=== PATIENT | female | born 1985 | race Caucasian/White ===

== ENCOUNTER → 2016-11-21 | Outpatient (CLI) | payer OTHER | END | disposition home or self-care (01) | LOC: C.PAPS 09:15 | PROVIDERS: ATTEND Obstetrics & Gynecology | DX: Z01.411 Encounter for gynecological examination (general) (routine) with abnormal findings (principal); R87.612 Low grade squamous intraepithelial lesion on cytologic smear of cervix (LGSIL) ==

== ENCOUNTER → 2016-12-19 | Outpatient (CLI) | payer OTHER ==
[~2016-12-19] MED LIST: LEVOIUD PV
== END | disposition home or self-care (01) ==
LOC: C.PATHSPEC 17:26
PROVIDERS: ATTEND Obstetrics & Gynecology
DX: R87.810 Cervical high risk human papillomavirus (HPV) DNA test positive (principal); R87.612 Low grade squamous intraepithelial lesion on cytologic smear of cervix (LGSIL)

== ENCOUNTER → 2017-01-10 | Day surgery (SDC) | payer OTHER ==
[2016-12-27 16:18] VITALS: Ht 154.9 cm; Wt 53.2 kg
[~2017-01-10] VITALS: Ht 154.9 cm; Wt 53.2 kg
[~2017-01-10] MED LIST changes: +ACETIC ACID 4% (WHITE VINEGAR) 30ML ONE; +ATROPINE SULFATE 0.1 MG/ML 5ML SYR IV PRN; +DEXAMETHASONE SOD INJ 4 MG/ML VIAL ONE; +EpHEDrine SULFATE INJ 50 MG/ML AMP IV PRN; +FENTANYL CITRATE INJ 50 MCG/1 ML 2 ML VIAL IV PRN; +FENTANYL CITRATE INJ 50 MCG/1 ML 2 ML VIAL ONE; +FERRIC SUBSULFATE 8 GM VIAL ONE; +IBUPROFEN 200 MG TAB ONE; +IBUPROFEN 600 MG TAB PO PRN; +IODINE SOLN STRONG 14 ML ONE; +KETOROLAC TROMETHAMINE 30 MG/ML VIAL IV. PRN; +KETOROLAC TROMETHAMINE 30 MG/ML VIAL ONE; +LACTATED RINGER'S 1000ML 1,000 ML IV SCH; +LIDO 2%/EPINEPHRINE 1:100000 20 ML VIAL INFIL ONE; +LIDOCAINE HCL 2% 2 ML VIAL (20MG/ML) ONE; +MIDAZOLAM HCL 1 MG/ML 2ML VIAL ONE; +ONDANSETRON INJ 2 MG/ML 2 ML VIAL IV PRN; +ONDANSETRON INJ 2 MG/ML 2 ML VIAL ONE; +OXYCODONE/ACETAMINOPHEN 5-325 TAB PO PRN; +PROPOFOL IV EMULSION 10 MG/ML 20 ML VIAL IV ONE; +SODIUM CHLORIDE 0.9% 1000ML 1,000 ML IV SCH
--- NOTE | 2017-01-10 07:13 | History & Physical Bridge - [place] ---
H&P Re-Evaluation Bridge Note: I have examined the patient, reviewed the History & Physical and in the interval since the performance of the History & Physical I have noted the following changes of clinical significance: No changes noted
--- NOTE | 2017-01-10 08:34 | [facility] Operative Report ---
Operative Report Operative Date Jan 10, 2017. Pre-Operative Diagnosis Moderate dysplasia, encounter for IUD removal and reinsertion Post-Operative Diagnosis Same Procedure(s) Performed #1 LEEP procedure #2 ECC above LEEP #3 removal of IUD #4 insertion of IUD Surgeon Blaze Timber Inspector Surgeon(s) none Estimated Blood Loss 1 Findings Nonstaining area of the cervix after Lugol's includes tongues of tissue anteriorly at approximately 11:00 and posteriorly at approximately 7:00. Uterus sounds to 6 cm. Fluids 400 Specimens RNA probe, LEEP anterior lip, LEEP posterior lip, ECC above LEEP Drains none Anesthesia Gen. Complication(s) None Disposition Recovery Room / PACU Indications 31-year-old with a history of abnormal Pap smear to include low-grade GAURAV possible high-grade GAURAV. Colposcopy performed with findings of moderate dysplasia. Areas of acetowhite change were very broad and recommended that the patient had LEEP procedure in the operating room. He is also due for removal and reinsertion of her IUD and we decided to do that simultaneously. Description of Procedure Patient take to the operating room and identified. After adequate general anesthesia was obtained she was placed in the dorsal lithotomy position. An RNA probe was obtained. A coated speculum was placed and the cervix was visualized. The IUD string was noted and the IUD was removed. The cervix was cleansed with acetic acid solution followed by Lugol's. The area of planned LEEP was noted. The cervix was circumferentially injected with 10 cc of 2% lidocaine with epinephrine. The LEEP procedure took place with an anterior lip pass, a posterior lip passed, and an ECC above the LEEP bed. The LEEP bed was cauterized with ball cautery. An Allis clamp was placed on the anterior lip. Uterus is sounded to 6 cm. A new Mirena device was readied and placed at the fundus in the usual fashion. The strings were trimmed to 2 cm. Monsel's was applied. Hemostasis was excellent. The patient was returned to the supine position after all insurance removed vaginally. She awoke from anesthesia and transferred to recovery room in stable condition. All sponge lap and needle counts were correct 2. I attest to the content of the Intraoperative Record and any orders documented therein. Any exceptions are noted below.
--- NOTE | 2017-01-10 08:34 | Medical Student: [facility] ---
Immediate Operative Summary Operative Date Jan 10, 2017. Pre-Operative Diagnosis Low grade squamous intraepithelial lesion, Positive HR HPV, IUD replacement Post-Operative Diagnosis LGSIL, Positive High Risk HPV, IUD replacement Procedure(s) Performed LEEP ECC IUD removal and reinsertion Surgeon Dr. Thakur Disabilities Caregiver Surgeon(s) None Estimated Blood Loss 1 cc Findings Large amounts of cervical dysplasia encompassing the whole cervical surface. Some HPV cells seen on both right and left vaginal griffin Fluids (cc crystalloids) 400 cc Specimens LEEP specimen: Anterior Lip of the cervix LEEP specimen: Posterior lip of the cervix ECC specimen above the LEEP Anesthesia General Complication(s) None Disposition Recovery Room / PACU
--- NOTE | 2017-01-10 08:35 | Discharge Instructions ---
Discharge Instructions Date of Service Jan 10, 2017. Admission Reason for Admission: Low Grade Squamous Interpithelial Lesion Discharge Discharge Diagnosis / Problem: after surgery Discharge Goals Goal(s): Routine recovery after surgery Activity Recommendations Activity Limitations: as noted below . Instructions / Follow-Up Instructions / Follow-Up ACTIVITY RECOMMENDATIONS: * Avoid tampons, douching, hot tubs, pools, and intercourse until bleeding has stopped and you are seen for followup. * May shower as usual. * No strenuous activity for 24-48 hours. After 24-48 hours, you may do anything you feel like doing (driving and sports are okay). SPECIAL CARE INSTRUCTIONS: Special Diet: * Mild nausea may occur in the immediate post-operative period. * Take clear liquids such as tea, cola or bouillon until all nausea has subsided; you may then resume your normal diet. Special Care: * Light bleeding and vaginal spotting can last from a few days to 3-4 weeks. Call your doctor if bleeding becomes heavier than the heaviest part of your period. * Check your temperature twice a day for one week. If it goes above 100.4 degrees Fahrenheit (38.0 Celsius), notify your doctor. FOLLOW-UP VISIT: Your followup visit is already scheduled on 01/21/17 at 215pm. Current Hospital Diet Patient's current hospital diet: Discharge Diet Recommended Diet: Regular Diet Procedures Procedures Performed: #1 LEEP procedure #2 ECC above LEEP #3 removal of IUD #4 insertion of IUD Pending Studies Studies pending at discharge: yes List of pending studies: rna probe, pathology Medical Emergencies . Who to Call and When: Medical Emergencies: If at any time you feel your situation is an emergency, please call 911 immediately. . Non-Emergent Contact Non-Emergency issues call your: Technology Professional . . "Provider Documentation" section prepared by Marla Thakur. . VTE Core Measure Inpt VTE Proph given/why not?: Treatment not indicated
[2017-01-10 09:06] VITALS: TEMP 36.4
--- NOTE | 2017-01-10 09:22 | Anesthesia Progress Nt - [facility] ---
Anesthesia Post Op Note Date & Time Jan 10, 2017 at 09:21 Vital Signs Pain Intensity: 0 Vital Signs Past 12 Hours Date Time Temp Pulse Resp B/P (MAP) Pulse Ox O2 Delivery O2 Flow Rate FiO2 01/10/17 08:56 91 15 100 01/10/17 08:56 92 15 01/10/17 08:55 117/74 01/10/17 08:51 90 17 01/10/17 08:51 36.7 90 16 117/74 100 Room Air 01/10/17 08:51 88 17 99 01/10/17 08:50 113/95 01/10/17 08:46 102 17 01/10/17 08:46 103 17 99 01/10/17 08:45 113/77 01/10/17 08:41 118 16 01/10/17 08:41 117 16 100 01/10/17 08:40 114/77 01/10/17 08:36 103 27 99 01/10/17 08:36 103 27 01/10/17 08:35 109/62 01/10/17 08:31 83 25 99 01/10/17 08:31 83 25 01/10/17 08:30 97/60 01/10/17 08:27 87/57 01/10/17 08:26 36.6 87 16 87/57 97 Mask 6 01/10/17 08:26 84 16 98 01/10/17 08:26 84 16 01/10/17 06:40 36.4 82 16 112/74 (87) 97 Room Air Notes Mental Status: alert / awake / arousable, participated in evaluation Pt Amnestic to Procedure: Yes Nausea / Vomiting: adequately controlled Pain: adequately controlled Airway Patency, RR, SpO2: stable & adequate BP & HR: stable & adequate Hydration State: stable & adequate Anesthetic Complications: no major complications apparent
[2017-01-10 09:45] VITALS: BP 110/77; PULSE 81; O2SAT 97
[2017-01-12 02:01] LABS: CHLAMYDIA TRACH RNA*** NOT DETECTED (NOT DETECTED); GC (NEIS GONORRHOEAE)RNA** NOT DETECTED (NOT DETECTED)
== END | disposition home or self-care (01) ==
LOC: X.SURG 06:27
PROVIDERS: ATTEND Obstetrics & Gynecology
DX: Z30.433 Encounter for removal and reinsertion of intrauterine contraceptive device (principal); R87.613 High grade squamous intraepithelial lesion on cytologic smear of cervix (HGSIL); R87.612 Low grade squamous intraepithelial lesion on cytologic smear of cervix (LGSIL); R87.810 Cervical high risk human papillomavirus (HPV) DNA test positive; Z79.899 Other long term (current) drug therapy; Z81.8 Family history of other mental and behavioral disorders

== ENCOUNTER → 2017-07-08 | Outpatient (CLI) | payer OTHER ==
[~2017-07-08] MED LIST changes: -ACETIC ACID 4% (WHITE VINEGAR) 30ML ONE; -ATROPINE SULFATE 0.1 MG/ML 5ML SYR IV PRN; -DEXAMETHASONE SOD INJ 4 MG/ML VIAL ONE; -EpHEDrine SULFATE INJ 50 MG/ML AMP IV PRN; -FENTANYL CITRATE INJ 50 MCG/1 ML 2 ML VIAL IV PRN; -FENTANYL CITRATE INJ 50 MCG/1 ML 2 ML VIAL ONE; -FERRIC SUBSULFATE 8 GM VIAL ONE; -IBUPROFEN 200 MG TAB ONE; -IBUPROFEN 600 MG TAB PO PRN; -IODINE SOLN STRONG 14 ML ONE; -KETOROLAC TROMETHAMINE 30 MG/ML VIAL IV. PRN; -KETOROLAC TROMETHAMINE 30 MG/ML VIAL ONE; -LACTATED RINGER'S 1000ML 1,000 ML IV SCH; +LEVO1IUD2 PV; -LEVOIUD PV; -LIDO 2%/EPINEPHRINE 1:100000 20 ML VIAL INFIL ONE; -LIDOCAINE HCL 2% 2 ML VIAL (20MG/ML) ONE; -MIDAZOLAM HCL 1 MG/ML 2ML VIAL ONE; -ONDANSETRON INJ 2 MG/ML 2 ML VIAL IV PRN; -ONDANSETRON INJ 2 MG/ML 2 ML VIAL ONE; -OXYCODONE/ACETAMINOPHEN 5-325 TAB PO PRN; -PROPOFOL IV EMULSION 10 MG/ML 20 ML VIAL IV ONE; -SODIUM CHLORIDE 0.9% 1000ML 1,000 ML IV SCH
== END | disposition home or self-care (01) ==
LOC: C.PAPS 11:11
PROVIDERS: ATTEND Obstetrics & Gynecology
DX: N87.1 Moderate cervical dysplasia (principal)